=== PATIENT | male | born 1980 | race African-American/Black ===

== ENCOUNTER 2018-09-22 04:55 | Emergency (ER) | payer MEDICAID, OTHER ==
[~2018-09-22] VITALS: Ht 185.4 cm; Wt 95.3 kg
[2018-09-22] MEDS ORDERED: NKM (05:11)
--- NOTE | 2018-09-22 05:14 | NUR ---
ED Nurse Note: pt walked in due to headache started 3 days ago. pt stated he might have a sinus infection. AO4. NAD. VSS. Reports headache 05/07. Denies NVD.
[2018-09-22 05:18] VITALS: BP 136/87
[2018-09-22] MEDS ORDERED: IBUPROFEN600 MG ORAL (05:28)
[2018-09-22] MEDS ORDERED: AUGMENTIN 875-1 EAC1 ORAL (05:28)
[2018-09-22] MEDS ORDERED: PSEUDOEPHEDRINE60 MG PO (05:28)
--- NOTE | 2018-09-22 05:29 | Emergency Room Report ---
History of Present Illness General Chief Complaint: Headache Source: Patient Present Illness [facility] This is a 38-year-old male with no past medical history. He presents with sinus headache. Onset for last couple days. Hard time breathing. No nausea no vomiting. Pain is 9 out of 10. No fever or chills. Hard to get any mucus coming out. Denies any other complaint. Allergies: Coded Allergies: Dust (Verified Allergy, Unknown, 09/22/18) Patient History Past Medical History: none, see triage record, old chart reviewed Past Surgical History: none Pertinent Family History: none Social History: Denies: smoking Immunizations: other Reviewed Nursing Documentation: PMH: Agreed; PSxH: Agreed Nursing Documentation-PMH Past Medical History: No Stated History Review of Systems Eye: Denies: eye pain, blurred vision ENT: Reports: nose congestion; Denies: ear pain, throat swelling Respiratory: Denies: cough, shortness of breath Cardiovascular: Denies: chest pain, palpitations Gastrointestinal: Denies: abdominal pain, diarrhea, nausea, vomiting Musculoskeletal: Denies: back pain, joint pain Skin: Denies: rash Neurological: Denies: headache, numbness Endocrine: Denies: increased thirst, increased urine Hematologic/Lymphatic: Denies: easy bruising All Other Systems: negative except mentioned in HPI Physical Exam Vital Signs Date Time Temp Pulse Resp B/P (MAP) Pulse Ox O2 Delivery O2 Flow Rate FiO2 09/22/18 05:04 98.4 68 16 136/87 97 Room Air vitals normal Sp02 EP Interpretation: reviewed, normal General Appearance: well appearing, no apparent distress, alert Head: normocephalic, atraumatic Eyes: bilateral eye PERRL, bilateral eye EOMI ENT: hearing grossly normal, normal pharynx, other - Nose with enlarged turbinate on the left side. Right TM with effusion. Maxillary sinus tenderness Neck: full range of motion, supple, no meningismus Respiratory: chest non-tender, lungs clear, normal breath sounds Cardiovascular #1: regular rate, rhythm, no murmur Gastrointestinal: normal bowel sounds, non tender, no mass, no organomegaly, no bruit, non-distended Musculoskeletal: back normal, gait/station normal, normal range of motion Psychiatric: mood/affect normal Skin: warm/dry Medical Decision Making Diagnostic Impression: Primary Impression: Sinusitis, acute maxillary Qualified Codes: J01.00 - Acute maxillary sinusitis, unspecified Additional Impressions: Sinus headache Right otitis media with effusion ER Course Patient with acute sinusitis and otitis media. Most likely viral but because of severity of symptoms, we'll put on antibiotics. No evidence of meningitis, sepsis, pneumonia to name a few. Last Vital Signs Date Time Temp Pulse Resp B/P (MAP) Pulse Ox O2 Delivery O2 Flow Rate FiO2 09/22/18 05:18 98.4 68 16 136/87 97 Room Air Status: improved Disposition: HOME, SELF-CARE Condition: Stable Scripts Ibuprofen* (MOTRIN*) 600 Mg Tablet 600 MG ORAL THREE TIMES A DAY, #30 TAB 0 Refills Prov: Tom Edmond MD 09/22/18 Pseudoephedrine Hcl* (SUDAFED*) 60 Mg Tablet 60 MG PO Q6H, #30 TAB Prov: Tom Edmond MD 09/22/18 Amoxicillin/Potassium Clav 875-125* (AUGMENTIN 875-125 TABLET*) 1 Each Tablet 1 TAB ORAL TWICE A DAY, #14 TAB Prov: Tom Edmond MD 09/22/18 Referrals: [facility],REFER (PCP) Patient Instructions: Sinus Headache Additional Instructions: Increase fluid. Follow-up with your doctor in 7 days if not better. Return if worse. Tom Edmond MD Sep 22, 2018 05:29
[2018-09-22 05:30] VITALS: BP 136/87
[2018-09-22] MEDS ORDERED: Norco 5mg/325mg tab ORAL ONE (05:30)
--- NOTE | 2018-09-22 05:30 | NUR ---
ED Nurse Note: Patient cleared cleared for discharge per ERMD. AO4. NAD. VSS. Patient given prescriptions and discharge instructions; verbalized understanding. ID removed. Patient ambulated steady out of ED with all belongings.
== END 2018-09-22 05:30 | disposition home or self-care (01) ==
LOC: EMR 05:24
DX: J01.00 Acute maxillary sinusitis, unspecified (principal); R51 Headache; H65.91 Unspecified nonsuppurative otitis media, right ear
CPT/HCPCS: 99282

== ENCOUNTER 2018-10-28 14:30 | Emergency (ER) | payer SELFPAY ==
[~2018-10-28] VITALS: Ht 185.4 cm; Wt 97.1 kg
[~2018-10-28 14:30] MED LIST: AUGMENTIN 875-1 EAC1 ORAL; IBUPROFEN600 MG ORAL; NKM; PSEUDOEPHEDRINE60 MG PO
[2018-10-28 14:34] VITALS: BP 127/80
--- NOTE | 2018-10-28 14:43 | NUR ---
ED Nurse Note: patient walked into ED from home patient reports his sinus is hurting 8/10, feels congested and bothering. Alert and awake x4 ambulatory
[2018-10-28] MEDS ORDERED: IBUPROFEN600 MG ORAL (14:52)
[2018-10-28] MEDS ORDERED: BENADRYL25 MG ORAL (14:52)
[2018-10-28] MEDS ORDERED: SUDAFED PE PRE1 EAC3 PO (14:52)
--- NOTE | 2018-10-28 14:52 | Emergency Room Report ---
History of Present Illness General Chief Complaint: Pain Source: Patient Present Illness HPI 38-year-old male patient presents the ER complaining of "I think I have a sinus infection" for the past 2 days. Reports history of sinus infections in the past , previously seen here for similar symptoms. Reports did not follow with primary care provider or see ENT specialist. Reports not "as bad" as previous visit. Denies fever, chest pain, shortness of breath. Denies sore throat or earache. Reports tenderness to palpation. Reports nasal congestion during this time. Denies other aggravating or relieving factors. States is not taking medication for relief of symptoms. Allergies: Coded Allergies: Dust (Verified Allergy, Unknown, 09/22/18) Patient History Past Medical History: see triage record Reviewed Nursing Documentation: PMH: Agreed; PSxH: Agreed Nursing Documentation-PMH Past Medical History: No Stated History Review of Systems All Other Systems: negative except mentioned in HPI Physical Exam Vital Signs Date Time Temp Pulse Resp B/P (MAP) Pulse Ox O2 Delivery O2 Flow Rate FiO2 10/28/18 14:34 98.4 74 20 127/80 97 Room Air Sp02 EP Interpretation: reviewed, normal General Appearance: well appearing, no apparent distress, alert, GCS 15, non- toxic Head: normocephalic, atraumatic Eyes: bilateral eye normal inspection, bilateral eye PERRL ENT: hearing grossly normal, normal pharynx, no angioedema, normal voice, TMs + canals normal, uvula midline, moist mucus membranes, nasal congestion, other - Left maxillary sinus tender to palpation, no overlying erythema or edema Neck: full range of motion, no meningismus, no bony tend Respiratory: lungs clear, normal breath sounds, no rhonchi, no respiratory distress, no accessory muscle use, no wheezing, speaking full sentences Cardiovascular #1: regular rate, rhythm, no edema Musculoskeletal: back normal, digits/nails normal, gait/station normal, normal range of motion, non-tender Psychiatric: mood/affect normal Skin: no rash Medical Decision Making PA Attestation Dr. Hernandez is my supervising Physician whom patient management has been discussed with. Diagnostic Impression: Primary Impression: Sinusitis, acute, maxillary ER Course Pt presents to ED c/o "sinus infection" for the past 2 days. DDX considered but are not limited to influenza, viral URI, pneumonia, strep throat, rhinitis, sinusitis, otitis media, migraine, sinus SHERMAN. Afebrile, no meningismus, low suspicion for meningitis. VITAL SIGNS are WNL, patient is afebrile. ER COURSE: Exam consistent with viral rhinosinusitis, does not require antibiotics at this time. If symptoms persist return to ER to discuss antibiotic treatment at that time. Will provide patient with outpatient treatment. Follow with primary care provider. Discussed referral to specialist. Provided with contact information for specialist. Advised on use of humidifier. Drink plenty of fluids. ER precautions given. Take Motrin for pain symptoms. DISCHARGE: At this time pt is stable for d/c to home. Patient is resting comfortably, in no acute distress, nontoxic appearing. Patient to take medications as instructed Will provide with patient care instructions and any necessary prescriptions. Care plan and follow-up instructions provided. Patient instructed to follow-up with primary care provider in 3 - 5 days. Patient questions asked and answered. ER precautions given. Patient instructed to return to ER immediately for any new or worsening of symptoms including but not limited to fever, facial weakness , difficulty speaking, difficulty breathing, difficulty swallowing. - Please note that this Emergency Department Report was dictated using [employer] registrar technology software, occasionally this can lead to erroneous entry secondary to interpretation by the dictation equipment. Last Vital Signs Date Time Temp Pulse Resp B/P (MAP) Pulse Ox O2 Delivery O2 Flow Rate FiO2 10/28/18 14:34 98.4 74 20 127/80 97 Room Air Disposition: HOME, SELF-CARE Condition: Stable Scripts Ibuprofen* (MOTRIN*) 600 Mg Tablet 600 MG ORAL Q8H PRN for For Pain, #30 TAB 0 Refills Prov: Olivier Raymond.A. 10/28/18 Diphenhydramine Hcl* (BENADRYL*) 25 Mg Capsule 25 MG ORAL QHS PRN for Itching, #30 CAP Prov: Olivier Raymond.A. 10/28/18 Guaifen/Phenyleph/Acetaminophn (Sudafed PE Pressure+Pain+Mucus) 1 Each Tablet 1 EACH PO BID, #24 TAB Prov: Olivier Raymond.A. 10/28/18 Patient Instructions: Sinusitis, Adult, [id number] Additional Instructions: Followup with primary care provider in 3 -5 days. Discussed referral to ENT specialist. Take medications as directed. Take Claritin during the day and Benadryl at night. Benadryl may cause drowsiness, do not take prior to drinking, driving, operating heavy machinery. Advised on use of humidifier and nasal saline. Patient questions asked and answered. ER precautions given, patient instructed to return to ER immediately for any new or worsening of symptoms. Olivier Raymond Oct 28, 2018 14:52
[2018-10-28 14:59] VITALS: BP 127/80
--- NOTE | 2018-10-28 14:59 | NUR ---
ER DISCHARGE NOTE: Patient is cleared to be discharged per ER GINNY Lundberg, pt is aox4, on room air, with stable vital signs. pt was given dc and prescription instructions, pt was able to verbalize understanding, pt id band removed without complications. pt is able to ambulate with steady gait. pt took all belongings.
== END 2018-10-28 14:58 | disposition home or self-care (01) ==
LOC: EMR 14:40
DX: J01.00 Acute maxillary sinusitis, unspecified (principal); Z91.048 Other nonmedicinal substance allergy status
CPT/HCPCS: 99282

== ENCOUNTER 2019-10-01 09:48 | Emergency (ER) | payer SELFPAY ==
[~2019-10-01] VITALS: Ht 182.9 cm; Wt 86.2 kg
[~2019-10-01 09:48] MED LIST changes: +BENADRYL25 MG ORAL; +SUDAFED PE PRE1 EAC3 PO
--- NOTE | 2019-10-01 09:58 | NUR ---
ED Nurse Note: Pt walked in from home c/o sinus pain since 09/25. Pt was seen in the ED for the same symptoms and was prescribed sudaphed, but pt reoprts that pain and pressure have not been alleviated. Pt also reports posterior right jaw pain. Respirations even and unlabored on room air. Vitals stable as documented
[2019-10-01 10:06] VITALS: BP 139/88
[2019-10-01] MEDS ORDERED: ZYRTEC10 M3 ORAL (10:11)
[2019-10-01] MEDS ORDERED: IBUPROFEN600 MG ORAL (10:11)
[2019-10-01] MEDS ORDERED: AUGMENTIN 875-1 EAC1 ORAL (10:11)
[2019-10-01] MEDS ORDERED: FLONASE ALLERG9.9 ML NS (10:11)
--- NOTE | 2019-10-01 10:17 | Emergency Room Report ---
History of Present Illness General Chief Complaint: Pain Source: Patient Present Illness HPI 39-year-old male no reported past medical history presented for right-sided facial pain. He reports a history of sinusitis in the past. He states he has had nasal discharge with right-sided facial pain for the past week. Was seen at an outside emergency room. Started on Sudafed which did help however pain has been persistent. He denies any fevers. Pain currently 8 out of 10 worse with movement and palpation of the face. No nausea or vomiting. He currently does not take any antihistamines, or nasal steroid. Allergies: Coded Allergies: Dust (Verified Allergy, Unknown, 09/22/18) Patient History Past Medical History: see triage record Reviewed Nursing Documentation: PMH: Agreed; PSxH: Agreed Nursing Documentation-PMH Past Medical History: No Stated History Review of Systems All Other Systems: negative except mentioned in HPI Physical Exam Vital Signs Date Time Temp Pulse Resp B/P (MAP) Pulse Ox O2 Delivery O2 Flow Rate FiO2 10/01/19 09:50 98.8 105 16 139/88 (105) 98 Room Air Sp02 EP Interpretation: reviewed, normal General Appearance: well appearing, no apparent distress Head: normocephalic, atraumatic Eyes: bilateral eye PERRL, bilateral eye EOMI ENT: TMs + canals normal, moist mucus membranes, other - Sinus tenderness noted along right frontal and maxillary sinus Neck: full range of motion, supple Respiratory: lungs clear, normal breath sounds, no rhonchi, no respiratory distress, no retraction, no wheezing Cardiovascular #1: normal peripheral pulses, regular rate, rhythm, no murmur Gastrointestinal: non tender, soft, non-distended, no guarding Neurologic: alert, oriented x3, no focal defects Skin: normal color, warm/dry Medical Decision Making Diagnostic Impression: Primary Impression: Sinusitis ER Course Patient presented with sinus pain, nasal discharge, he was a nontoxic on exam. He was in no acute distress. Did have sinus tenderness, my differential included sinusitis versus dental infection versus otitis media versus viral URI. Patient has failed outpatient conservative treatment with Sudafed only so I will start on antihistamine, nasal steroid and prescribe a oral antibiotic. Patient advised to avoid smoking marijuana. Last Vital Signs Date Time Temp Pulse Resp B/P (MAP) Pulse Ox O2 Delivery O2 Flow Rate FiO2 10/01/19 10:06 98.8 74 16 139/88 98 Room Air Disposition: HOME, SELF-CARE Condition: Stable Scripts Fluticasone Propionate (Flonase Allergy Relief) 9.9 Ml [place].susp 9.9 ML NS DAILY, #1 UNIT Prov: Jone Tellez M.D. 10/01/19 Ibuprofen* (MOTRIN*) 600 Mg Tablet 600 MG ORAL Q8H PRN for For Pain, #30 TAB 0 Refills Prov: Jone Tellez M.D. 10/01/19 Amoxicillin/Potassium Clav 875-125* (AUGMENTIN 875-125 TABLET*) 1 Each Tablet 1 TAB ORAL TWICE A DAY, #14 TAB Prov: Jone Tellez M.D. 10/01/19 Cetirizine Hcl (ZYRTEC) 10 Mg Capsule 10 MG ORAL DAILY, #30 CAP 0 Refills Prov: Jone Tellez M.D. 10/01/19 Referrals: NOT CHOSEN [facility]/,REFERRING (PCP) [facility] Patient Instructions: Sinusitis, Adult, [id number] Additional Instructions: Patient is instructed to follow-up with her primary care doctor, primary care clinic or [facility] in 1 to 2 days. Patient instructed to return for any worsening symptoms or concerns. Please note that the documentation in this note was used with [employer] technology. Pleae be advised that this may lead to erroneous text due to misinterpretation by the dictation software Jone Tellez M.D. Oct 01, 2019 10:17
[2019-10-01 10:20] VITALS: BP 134/84
--- NOTE | 2019-10-01 10:20 | NUR ---
ER DISCHARGE NOTE: Patient is cleared to be discharged per ERMD, pt is aox4, on room air, with stable vital signs as documented. pt was given dc and prescription instructions and was able to verbalize understanding. pt id band removed. pt is able to ambulate with steady gait. pt took all belongings.
== END 2019-10-01 10:20 | disposition home or self-care (01) ==
LOC: EMR 10:11
DX: J32.9 Chronic sinusitis, unspecified (principal); R51 Headache
CPT/HCPCS: 99282